=== PATIENT | female | born 1980 | race Caucasian/White ===

== ENCOUNTER → 2018-05-16 09:54 | Outpatient (CLI) | payer OTHER, SELFPAY ==
--- NOTE | 2018-05-16 | DI.RAD.S_ITS ---
PROCEDURE: XR THORACIC SPINE 2V INDICATIONS: LUMBAR AND THORACIC BACK PAIN TECHNIQUE: 2 views of the thoracic spine were acquired. COMPARISON: None. FINDINGS: Bones: No fractures or dislocations. No suspicious bony lesions. 12 pairs of ribs are noted, and appear intact where visualized. Mild multilevel degenerative changes are noted. Soft tissues: No paravertebral stripe thickening. IMPRESSION: No fracture. No acute osseous lesion. If symptoms and/or clinical suspicion for pathology persists, evaluation with MRI may be helpful for further assessment. Dictated by: Jessica Carson MD, PhD on 05/16/2018 at 10:46 Approved by: Jessica Carson MD, PhD on 05/16/2018 at 10:47
--- NOTE | 2018-05-16 | DI.RAD.S_ITS ---
PROCEDURE: XR LUMBAR SPINE 2-3V INDICATIONS: LUMBAR AND THORACIC BACK PAIN TECHNIQUE: 3 views of the lumbar spine were acquired. COMPARISON: None. FINDINGS: Bones: 5 [id number] vertebrae are present. There is trace L1-L2, L2-L3 and L3-L4 retrolisthesis.. No vertebral body compression fractures. No suspicious bony lesions. Soft tissues: Overlying bowel gas pattern is normal. No suspicious soft tissue calcifications. Cholecystectomy clips. Intrauterine device. IMPRESSION: No fracture. No acute osseous lesion. If symptoms and/or clinical suspicion for pathology persists, evaluation with MRI may be helpful for further assessment. Dictated by: Jessica Carson MD, PhD on 05/16/2018 at 10:45 Approved by: Jessica Carson MD, PhD on 05/16/2018 at 10:46
== END ==
PROVIDERS: PCP Nurse Practitioner Family; Visit Provider Nurse Practitioner Family
DX: M54.5 Low back pain (principal); M54.6 Pain in thoracic spine
CPT/HCPCS: 72070; 72100

== ENCOUNTER → 2018-05-31 15:41 | Outpatient (CLI) | payer OTHER, SELFPAY ==
--- NOTE | 2018-05-31 15:43 | DI.US.S_ITS ---
PROCEDURE: US ABDOMEN COMPLETE INDICATIONS: ABDOMINAL TENDERNESS TECHNIQUE: Real-time scanning was performed of the abdominal and retroperitoneal organs, with image documentation. COMPARISON: None. FINDINGS: Liver: Liver is normal in size and homogeneous in echotexture. Gallbladder: Gallbladder surgically absent Biliary ducts: Intrahepatic bile ducts are non-dilated. Extrahepatic bile duct caliber measures 5 mm. Normal is 6-7 mm or less in diameter, or 10 mm or less post-cholecystectomy. Pancreas: Visualized portions of the pancreas are sonographically normal. Spleen: Spleen is normal in size and homogeneous in echotexture. Kidneys: Kidneys are normal in size and echotexture. Right kidney measures 12.5 cm long; left kidney measures 12.4 cm long. No hydronephrosis or nephrolithiasis. No solid masses. Aorta: Visualized aorta is normal in caliber at less than 3 cm. Iliacs: Proximal common iliac arteries are normal in caliber at less than 2.5 cm. IVC: Intrahepatic inferior vena cava is patent. Miscellaneous: No free abdominal fluid. IMPRESSION: Normal abdomen ultrasound post cholecystectomy Dictated by: Cecilio Velazquez M.D. on 05/31/2018 at 17:06 Approved by: Cecilio Velazquez M.D. on 05/31/2018 at 17:07
== END ==
PROVIDERS: PCP Nurse Practitioner Family; Visit Provider Nurse Practitioner Family
DX: R10.819 Abdominal tenderness, unspecified site (principal); Z90.49 Acquired absence of other specified parts of digestive tract
CPT/HCPCS: 76700

== ENCOUNTER 2019-01-22 10:03 | Emergency (ER) | payer OTHER, SELFPAY ==
[2019-01-22 10:20] VITALS: BP 138/96; PULSE 78; RESP 15; TEMP 36.2; O2SAT 99; BMI 30.6
[2019-01-22 11:09] LABS: Alanine Aminotransferase 27 IU/L (9-52); Albumin 4.8 g/dL (3.5-5.0); Albumin Globulin Ratio 1.4 (1.0-2.8); Alkaline Phosphatase 75 U/L (38-126); Aspartate Aminotransferase 25 IU/L (14-36); Bilirubin Total 0.4 mg/dL (0.2-1.3); Blood Urea Nitrogen 12 mg/dL (7-17); Calcium 9.5 mg/dL (8.4-10.2); Carbon Dioxide 26 mmol/L (22-32); Chloride 101 mmol/L (98-107); Estimated Glomerular Filt Rate > 60.0 mL/min (>60); Globulin 3.5 g/dL (1.7-4.1); Glucose 82 mg/dL (70-100); HEMOLYSIS < 15 (0-50); Lipase 152 U/L (23-300); Potassium 3.7 mmol/L (3.4-5.1); Sodium 139 mmol/L (137-145); Total Protein 8.3 g/dL (6.3-8.2)
[2019-01-22 11:10] LABS: Add Manual Diff / Slide Review NO; Basophils Absolute Auto 100 /uL (0-100); Eosinophils Absolute Auto 300 /uL (0-450); Eosinophils Percent Auto 2.7 % (2-4); Hematocrit 39.8 % (36-46); Hemoglobin 13.3 g/dL (12.0-16.0); Lymphocytes Absolute Auto 2000 /uL (1100-4500); Lymphocytes Percent Auto 16.5 % (25-40); Mean Corpuscular HGB Conc 33.4 % (30-36); Mean Corpuscular Hemoglobin 29.7 PG (26-34); Mean Corpuscular Volume 88.8 fL (80-100); Monocytes Absolute Auto 1100 /uL (0-900); Monocytes Percent Auto 8.6 % (3-14); Neutrophils Absolute Auto 8700 /uL (1500-7000); Neutrophils Percent Auto 71.2 % (50-75); Platelet Count 387 X10^3/uL (150-400); Red Blood Cell Count 4.48 X10^6/uL (4.0-5.2); Red Cell Distribution Width 13.9 % (11.6-14.8); White Blood Cell Count 12.3 X10^3/uL (4.5-11.0)
[2019-01-22] MEDS: SODIUM CHLORIDE 0.9% 1,000 ML 1000 ML IV (11:19)
--- NOTE | 2019-01-22 11:33 | ED.ABDPAIN ---
HPI - Abdominal Pain General Chief Complaint: Abdominal Pain Stated Complaint: abdominal issues Time Seen by Provider: 01/22/19 11:25 Source: patient Mode of arrival: ambulatory Limitations: no limitations History of Present Illness HPI narrative: This is a 38-year-old female comes to the emergency department with complaint of ordaz stools. Patient states that she has had abdominal discomfort for the past eight days. It is mostly suprapubically but also a little bit epigastric. Patient has not had fevers. She has had some nausea but no vomiting. She has not really had diarrhea but states her stools have been ordaz in coloration. Patient states that she has had no issues with urination, no frequency urgency or dysuria. No vaginal discharge, she does have an IUD in place states she does get normal. Then will have some spotting a couple days afterwards but this is been regular. She was seen by [facility] Car[facility] today. They did a point of care urine which was negative as well as a pelvic exam. Patient was mildly tender suprapubically but otherwise with no cervical motion tenderness, no discharge or other changes. Patient has a history significant for asthma as well as had parasites after living in [facility]. She states she was treated for these as long with her whole family. She has had 1 episode similar to this that last about a week about 6 months ago and then resolved. She has felt a little bit more short of breath recently. She states that her asthma was intermittently very problematic [place] but after working with her ENT and physician she has got back to a fairly normal level. She states that she felt a little short of breath today. She albuterol. Related Data Home Medications Medication Instructions Recorded Confirmed Dulera 1 puff INH BID #0 04/08/17 01/22/19 Dymista 1 spr INTRANASAL BID #0 04/08/17 01/22/19 montelukast 10 mg PO DAILY PRN #0 04/08/17 01/22/19 albuterol sulfate [ProAir 1 puff INHALATION PRN PRN 01/22/19 01/22/19 RespiClick] beclomethasone diprop (AQ) 1 spray INTRANASAL BID 01/22/19 01/22/19 celecoxib 200 mg PO DAILY PRN 01/22/19 01/22/19 copper [ParaGard T 380A] 1 ea INTRAUTERINE .ONCE 01/22/19 01/22/19 Allergies Allergy/AdvReac Type Severity Reaction Status Date / Time acetaminophen [From TYLENOL] Allergy Unknown Verified 01/22/19 10:58 aspirin [ASPIRIN] Allergy Unknown Verified 01/22/19 10:58 ibuprofen [From Advil] Allergy Unknown Verified 01/22/19 10:58 NSAIDS (Non-Steroidal Allergy Unknown Verified 01/22/19 10:58 Anti-Inflamma Review of Systems Review of Systems ROS Unobtainable: All systems reviewed & are unremarkable except as noted in HPI and below Constitutional Denies body ache(s), Denies chills, Denies fever(s), Denies lethargy and Denies weakness ENT Ears, Nose, Mouth, and Throat: Denies nasal congestion Cardiovascular Denies chest pain, Denies chest pain at rest, Denies diaphoresis, Denies syncope, Denies pedal edema, Denies edema, Denies leg edema, Denies lightheadedness, Reports dyspnea, Denies dyspnea on exertion and Denies orthopnea Respiratory Denies chest congestion, Denies excessive phlegm production, Denies pain on inspiration, Reports dyspnea, Denies dyspnea on exertion and Denies wheezing Gastrointestinal Gastrointestinal: Reports abdominal pain (Epigastric, suprapubic), Denies melena, Reports bloating, Denies hematochezia, Denies change in bowel habits, Reports change in stool character (Ordaz in coloration), Denies constipation, Denies early satiety, Denies diarrhea, Denies nausea and Denies vomiting Genitourinary Reports abnormal vaginal bleeding, Denies hematuria, Denies urinary frequency, Denies dysuria, Denies flank pain, Denies urinary incontinence, Denies urinary urgency and Denies vaginal discharge Musculoskeletal Denies back pain and Denies muscle weakness Integumentary/Breasts Denies rash Neurologic Denies syncope and Denies weakness Allergic/Immunologic Denies wheezing PFSH Medical History Asthma (Chronic) Parasites in stool (Resolved) Social History Smoking Status: Never smoker substance use type: does not use during the past year weight has: increased > 10 lbs Exam Initial Vital Signs Initial Vital Signs: Vital Signs Temperature 97.1 F L 01/22/19 10:20 Pulse Rate 78 01/22/19 10:20 Respiratory Rate 15 01/22/19 10:20 Blood Pressure 138/96 H 01/22/19 10:20 Pulse Oximetry 99 01/22/19 10:20 GENERAL: Alert and oriented x three, Obese, well-appearing female in mild distress. HEENT: Head normocephalic, atraumatic, EOMI, pupils reactive, face symmetric, moist mucous membranes NECK: Supple, full range of motion CARDIOVASCULAR: Regular rate and rhythm without murmurs, rubs or gallops. RESPIRATORY: Breath sounds equal bilaterally, no wheezes rales or rhonchi. no tachypnea, no accessory muscle use. ABDOMEN: Soft, very mild epigastric and suprapubic tenderness. Normoactive bowel sounds all 4 quadrants. No guarding or rebound, rigidity, no mass : No CVA tenderness EXTREMITIES: Normal range of motion, no clubbing or edema. Neurovascularly intact NEUROLOGICAL: Cranial nerves II through XII grossly intact. Moving all extremities SKIN: Warm, dry, no petechiae, no rashes or lesions. Course Orders Ordered: ED Orders 01/22/19 10:45 Complete Blood Count AUTO DIFF Stat Comprehensive Metabolic Panel Stat Lipase Stat 01/22/19 12:41 CT abdomen pelvis w con Stat Discontinued Medications Albuterol/Ipratropium (Duoneb) 3 ml INH NOW ONE Stop: 01/22/19 11:50 Last Admin: 01/22/19 11:58 Dose: 3 ml Sodium Chloride (Normal Saline 0.9%) 1,000 mls @ 1,000 mls/hr IV BOLUS ONE Stop: 01/22/19 11:36 Last Infusion: 01/22/19 13:37 Dose: 0 mls/hr Admin: 01/22/19 11:19 Dose: 1,000 mls/hr Vital Signs - 8 hr 01/22/19 12:01 01/22/19 13:55 Pulse Rate 79 90 Respiratory Rate 20 18 Blood Pressure [Right Arm] 120/89 Pulse Oximetry 100 99 MDM - Abdominal Pain Lab Data Attestation: I reviewed the patient's lab results. Result diagrams: 01/22/19 10:45 01/22/19 10:45 Lab Results 01/22/19 01/22/19 Range/Units 10:45 10:45 WBC 12.3 H (4.5-11.0) X10^3/uL RBC 4.48 (4.0-5.2) X10^6/uL Hgb 13.3 (12.0-16.0) g/dL Hct 39.8 (36-46) % MCV 88.8 (80-100) fL MCH 29.7 (26-34) PG MCHC 33.4 (30-36) % RDW 13.9 (11.6-14.8) % Plt Count 387 (150-400) X10^3/uL Neut % (Auto) 71.2 (50-75) % Lymph % (Auto) 16.5 L (25-40) % [place] % (Auto) 8.6 (3-14) % Eos % (Auto) 2.7 (2-4) % Baso % (Auto) 1.0 (0-2) % Neut # (Auto) 8700 H (5617-6283) /uL Lymph # (Auto) 2000 (5729-8959) /uL [place] # (Auto) 1100 H (0-900) /uL Eos # (Auto) 300 (0-450) /uL Baso # (Auto) 100 (0-100) /uL Sodium 139 (137-145) mmol/L Potassium 3.7 (3.4-5.1) mmol/L Chloride 101 (98-107) mmol/L Carbon Dioxide 26 (22-32) mmol/L BUN 12 (7-17) mg/dL Creatinine 0.60 (0.52-1.04) mg/dL Estimated GFR > 60.0 (>60) mL/min BUN/Creatinine Ratio 20.0 (6-22) Glucose 82 (70-100) mg/dL Calcium 9.5 (8.4-10.2) mg/dL Total Bilirubin 0.4 (0.2-1.3) mg/dL AST 25 (14-36) IU/L ALT 27 (9-52) IU/L Alkaline Phosphatase 75 (38-126) U/L Total Protein 8.3 H (6.3-8.2) g/dL Albumin 4.8 (3.5-5.0) g/dL Globulin 3.5 (1.7-4.1) g/dL Albumin/Globulin Ratio 1.4 (1.0-2.8) Lipase 152 (23-300) U/L Point of care testing: Point of Care Testing Test Results Negative Imaging Data CT scan - abdomen: Radiologist's impression: 35 Berenice Miller, DO Find Patient Imaging Varsha,Divina V 38 F 1980 ACTIVITY DATE EXAM STATUS AUTHOR 01/22/19 12:[address] [address] [address] Scan Report Signed Patient: Divina Maddox VMR#: [id number] : 1980Acct:[id number] Age/Sex: 38 / FDate of Service: 01/22/19 Loc: ED Accession Number: [id number] Procedure: CT abdomen pelvis w con Ordering Provider: Berenice Miller D.O. PROCEDURE: CT ABDOMEN PELVIS W CON INDICATIONS: epigastric and suprapubic pain, hx parasites, ordaz stool TECHNIQUE: After the administration of intravenous contrast, 5 mm thick sections acquired from the diaphragm to the symphysis. 5 mm coronal and sagittal reformats were acquired. For radiation dose reduction, the following was used: automated exposure control, adjustment of mA and/or kV according to patient size. COMPARISON: [facility], , US ABDOMEN COMPLETE, 05/31/2018, 16:14. FINDINGS: Image quality: Excellent. ABDOMEN: Lung bases: Scarring/atelectasis in posterior and lateral aspect of bilateral lung bases are seen. Heart size is normal. Solid organs: Liver is normal in size and enhancement. Gallbladder is surgically absent. Biliary system is non dilated. Pancreas enhances normally. Spleen is normal in size and enhancement. No adrenal nodules. Kidneys demonstrate normal size and enhancement, without hydronephrosis. Peritoneum and bowel: There is no evidence of bowel structure. Small amount of free fluid in lower pelvis is seen. A few mild fluid distended small bowel loops are noted in lower abdomen and pelvis with mild small bowel wall thickening. No free air is seen. No other area of abnormal bowel thickening.. Bowel loops demonstrate normal wall thickness and caliber. No free fluid or air. Nodes and vessels: No retroperitoneal or mesenteric adenopathy by size criteria. Aorta and inferior vena cava are normal in size. Miscellaneous: No ventral hernias. PELVIS: Genitourinary: Mild diffuse bladder wall thickening is seen. Intrauterine device is noted in its central endometrial location. Bulky appearing uterus is noted with suggestion of multiple uterine fibroids. Cystic structures are noted in bilateral adnexa, measures up to 2.3 x 2.1 cm in size in left adnexa and a 2.5 x 1.7 cm in right adnexa. Miscellaneous: No inguinal hernias or adenopathy. Bones: No suspicious bony lesions. No vertebral body compression fractures. IMPRESSION: 1. Bulky appearing uterus. Cystic structures in bilateral adnexa which may represent ovarian cysts. Small amount of free fluid in lower pelvis. No gross free air. Intrauterine device in situ. 2. Mild small bowel wall thickening in lower abdomen/pelvis adjacent to the uterus, which may represent reactive inflammatory changes. Low-grade enteritis cannot be excluded. 3. Mild bladder wall thickening, suggestive of mild cystitis. No renal stone hydronephrosis. Dictated by: Yan Mcgregor M.D. on 01/22/2019 at 12:58 Approved by: Yan Mcgregor M.D. on 01/22/2019 at 13:05 [facility] Narrative Medical decision making narrative: Patient's lab work shows an elevated white count, in the 12 range.CMP shows a slightly elevated total protein. Imaging showes patient has a bulky appearing uterus with cystic structures bilaterally adnexa which could be ovarian cyst. There is some small amount of free fluid in the lower pelvis and intrauterine device in situ. There is a little bit of thickening of the bowel wall which could represent inflammatory changes although a low-grade enteritis could not be excluded. There is also some thickening of the bladder wall suggestive of mild cystitis. Patient has a point of care urine was negative. was negative. Discussed with patient that possibly her uterine change and could be the cause of her discomfort and I would recommend a dedicated pelvic ultrasound for further evaluation for likely uterine fibroids and ovarian cysts although discussed remote risk of other causes and cancer when patient asked directly. We also discussed that there is not a clear sign of enteritis but some inflammation of adjacent bowel and with rodaz stools but no frequent diarrhea would not start her antibiotics at this time. We did discuss doing a stool culture and ova and parasites and was given a specimen cup as well as outpatient lab script. Patient did respond to some albuterol and her peak flow improved afterwards. Patient does have this at home plan to continue. Discharge Plan Departure Patient Disposition: Home Clinical Impression: Abdominal pain, Ovarian cyst Discharge Date/Time: 01/22/19 14:16 Interventions: ED Discharge Assessment Last Done: 01/22/19 13:55 Instructions: DI for Abdominal Pain-Adult Activity Restrictions/Additional Instructions: Follow-up with her primary care physician in the next week for re-evaluation. I would recommend discussing with them a pelvic ultrasound regarding the changes to uterus including the c bilateral adnexa (ovarian) cystic structures and possibility of uterine fibroids. There is a little thickening of the bladder but urine is negative for infection. You may continue ibuprofen and/or Tylenol as needed for pain. I would recommend sending a stool sample for evaluation for ova and parasites as well. Return to the emergency department for fevers greater than 100.4, worsening pain, black or bloody stools, new or persistent vomiting, new vaginal bleeding or discharge or other new or concerning symptoms. Prescriptions: No Action Dulera 200 MCG/5 MCG HFA aerosol inhaler 1 puff INH BID Qty: 0 RF: 0 Dymista 23 GM spray,non-aerosol 1 spr Intranasal BID Qty: 0 RF: 0 montelukast 10 MG tablet 10 mg PO DAILY PRN (Reason: asthma or allergies) Qty: 0 RF: 0 celecoxib 200 mg capsule 200 mg PO DAILY PRN (Reason: joint pain) RF: 0 beclomethasone diprop (AQ) 42 mcg (0.042 %) [place],Non-Aerosol 1 spray Intranasal BID RF: 0 ParaGard T 380A 380 square mm Intrauterine Device 1 ea Intrauterine .ONCE RF: 0 ProAir RespiClick 90 mcg/actuation Aerosol Powdr Breath Activated 1 puff Inhalation PRN PRN (Reason: Allergy Symptoms) RF: 0 Referrals: Tg Carreon ARNP [Primary Care Provider] -
[2019-01-22] MEDS: ALBUTEROL/IPRATROPIUM 3 ML AMPUL INH (11:58)
[2019-01-22 12:01] VITALS: PULSE 79; RESP 20; O2SAT 100
--- NOTE | 2019-01-22 12:41 | DI.CT.S_ITS ---
PROCEDURE: CT ABDOMEN PELVIS W CON INDICATIONS: epigastric and suprapubic pain, hx parasites, melendez stool TECHNIQUE: After the administration of intravenous contrast, 5 mm thick sections acquired from the diaphragm to the symphysis. 5 mm coronal and sagittal reformats were acquired. For radiation dose reduction, the following was used: automated exposure control, adjustment of mA and/or kV according to patient size. COMPARISON: [facility], US, US ABDOMEN COMPLETE, 05/31/2018, 16:14. FINDINGS: Image quality: Excellent. ABDOMEN: Lung bases: Scarring/atelectasis in posterior and lateral aspect of bilateral lung bases are seen. Heart size is normal. Solid organs: Liver is normal in size and enhancement. Gallbladder is surgically absent. Biliary system is non dilated. Pancreas enhances normally. Spleen is normal in size and enhancement. No adrenal nodules. Kidneys demonstrate normal size and enhancement, without hydronephrosis. Peritoneum and bowel: There is no evidence of bowel structure. Small amount of free fluid in lower pelvis is seen. A few mild fluid distended small bowel loops are noted in lower abdomen and pelvis with mild small bowel wall thickening. No free air is seen. No other area of abnormal bowel thickening.. Bowel loops demonstrate normal wall thickness and caliber. No free fluid or air. Nodes and vessels: No retroperitoneal or mesenteric adenopathy by size criteria. Aorta and inferior vena cava are normal in size. Miscellaneous: No ventral hernias. PELVIS: Genitourinary: Mild diffuse bladder wall thickening is seen. Intrauterine device is noted in its central endometrial location. Bulky appearing uterus is noted with suggestion of multiple uterine fibroids. Cystic structures are noted in bilateral adnexa, measures up to 2.3 x 2.1 cm in size in left adnexa and a 2.5 x 1.7 cm in right adnexa. Miscellaneous: No inguinal hernias or adenopathy. Bones: No suspicious bony lesions. No vertebral body compression fractures. IMPRESSION: 1. Bulky appearing uterus. Cystic structures in bilateral adnexa which may represent ovarian cysts. Small amount of free fluid in lower pelvis. No gross free air. Intrauterine device in situ. 2. Mild small bowel wall thickening in lower abdomen/pelvis adjacent to the uterus, which may represent reactive inflammatory changes. Low-grade enteritis cannot be excluded. 3. Mild bladder wall thickening, suggestive of mild cystitis. No renal stone hydronephrosis. Dictated by: Yan Mcgregor M.D. on 01/22/2019 at 12:58 Approved by: Yan Mcgregor M.D. on 01/22/2019 at 13:05
[2019-01-22 13:55] VITALS: BP 120/89; PULSE 90; RESP 18; O2SAT 99
== END 2019-01-22 14:16 | disposition home or self-care (01) ==
PROVIDERS: Emergency Provider Emergency Medicine; PCP Nurse Practitioner Family
DX: N83.209 Unspecified ovarian cyst, unspecified side (principal)
CPT/HCPCS: 36591; 74177; 80053; 81025; 83690; 85025; 94150; 94640; 96360; 96361; 99283; 99285; Q9967

== ENCOUNTER → 2019-01-23 08:49 | Outpatient (CLI) | payer OTHER, SELFPAY | PROVIDERS: PCP Nurse Practitioner Family; Visit Provider Emergency Medicine | DX: Z86.19 Personal history of other infectious and parasitic diseases (principal) | CPT/HCPCS: 87045; 87177; 87899 ==

== ENCOUNTER → 2019-02-07 07:55 | Outpatient (CLI) | payer OTHER, SELFPAY ==
--- NOTE | 2019-02-07 | DI.US.S_ITS ---
PROCEDURE: US PELVIC COMPLETE INDICATIONS: PELVIC PAIN TECHNIQUE: Real-time scanning was performed of the pelvic organs, with image documentation. Additional endovaginal scanning was necessary due to incomplete visualization of the adnexal and endometrial structures by transabdominal scanning. COMPARISON: None. FINDINGS: Transabdominal scanning: Limited scanning through the kidneys shows no hydronephrosis. No pathologic free abdominal or pelvic fluid. Endovaginal scanning: Uterus: Uterus is slightly enlarged in size at 10.8 x 5.8 x 7.1 cm. 2.2 x 1.4 x 1.6 cm intramural fibroid is seen in left anterior myometrium. The endometrium measures 6.2 mm in combined thickness. No endometrial mass or fluid is seen. Intrauterine device is noted in its normal central endometrial location. Ovaries: Right ovary measures 3.7 x 2.2 x 1.3 cm in size. Left ovary measures 4.4 x 1.7 x 1.4 cm in size. No gross abnormality is seen in bilateral ovaries or adnexa. IMPRESSION: Single intramural fibroid in left anterior myometrium as above. Otherwise unremarkable ultrasound examination of pelvis. Intrauterine device is in its normal central endometrial location. Dictated by: Yan Mcgregor M.D. on 02/07/2019 at 9:43 Approved by: aYn Mcgregor M.D. on 02/07/2019 at 9:45
== END ==
PROVIDERS: PCP Nurse Practitioner Family; Visit Provider Nurse Practitioner Family
DX: R10.2 Pelvic and perineal pain (principal); D25.1 Intramural leiomyoma of uterus; Z97.5 Presence of (intrauterine) contraceptive device
CPT/HCPCS: 76830; 76856

== ENCOUNTER 2021-09-30 23:53 | Emergency (ER) | payer OTHER, SELFPAY ==
[2021-10-01 00:17] VITALS: BP 160/92; PULSE 110; RESP 18; TEMP 36.7; O2SAT 100; BMI 30.2
[2021-10-01 01:08] LABS: Add Manual Diff / Slide Review NO; Basophils Absolute Auto 0 /uL (0-100); Basophils Percent Auto 0.2 % (0-2); Eosinophils Absolute Auto 500 /uL (0-450); Eosinophils Percent Auto 3.9 % (2-4); Hematocrit 24.2 % (36-46); Hemoglobin 7.9 g/dL (12.0-16.0); Lymphocytes Absolute Auto 1900 /uL (1100-4500); Mean Corpuscular HGB Conc 32.5 % (30-36); Mean Corpuscular Hemoglobin 29.5 PG (26-34); Mean Corpuscular Volume 90.8 fL (80-100); Monocytes Absolute Auto 1100 /uL (0-900); Neutrophils Absolute Auto 10000 /uL (1500-7000); Neutrophils Percent Auto 73.9 % (50-75); Platelet Count 396 X10^3/uL (150-400); Red Blood Cell Count 2.67 X10^6/uL (4.0-5.2); Red Cell Distribution Width 13.4 % (11.6-14.8); White Blood Cell Count 13.5 X10^3/uL (4.5-11.0)
[2021-10-01 01:10] LABS: BUN Creatinine Ratio 24.1 (6-22); Blood Urea Nitrogen 14 mg/dL (7-17); Calcium 8.5 mg/dL (8.4-10.2); Carbon Dioxide 24 mmol/L (22-32); Chloride 104 mmol/L (98-107); Estimated Glomerular Filt Rate > 60.0 mL/min (>60); Glucose 129 mg/dL (70-100); HEMOLYSIS < 15 (0-50); Potassium 3.2 mmol/L (3.4-5.1); Sodium 136 mmol/L (137-145)
--- NOTE | 2021-10-01 01:22 | PC.NURSE ---
Patient very dizzy with ambulation to restroom, became diaphoretic i felt like i was going to pass out Nauseated. Patient transferred to a bed in hallway.
--- NOTE | 2021-10-01 01:31 | DI.US.S_ITS ---
PROCEDURE: US PELVIC COMPLETE INDICATIONS: HEAVY BLEEDING TECHNIQUE: Real-time scanning was performed of the pelvic organs, with image documentation. Additional endovaginal scanning was necessary due to incomplete visualization of the adnexal and endometrial structures by transabdominal scanning. COMPARISON: [facility], CT, CT ABDOMEN PELVIS W CON, 01/22/2019, 12:37. [facility], US, US PELVIC COMPLETE, 02/07/2019, 8:17. FINDINGS: Uterus: Uterus is anteverted and mildly enlarged in size at 12.4 x 6.5 x 8.4 cm. The myometrium is heterogeneous, with a 2.3 cm fibroid again seen anteriorly, which is similar to the prior examination. The endometrium measures 6 mm combined thickness. An IUD is not seen. There is a solid nonvascular heterogeneous focus seen within the endometrial stripe that measures 2.4 x 1.4 x 3.1 cm. Ovaries: The right ovary measures 4.7 x 2.4 x 4.3 cm, and demonstrates a simple cyst that measures up to 4.3 cm. The left ovary measures 6.5 x 2.7 x 4.3 cm and demonstrates a simple cyst that measures up to 3.1 cm. The ovaries have a normal sonographic appearance. No adnexal masses are seen. Other: No pathologic free abdominal or pelvic fluid. IMPRESSION: An IUD is not seen. If the IUD has not been removed, please consider follow-up imaging, such as pelvic x-ray or pelvic CT. There is a nonvascular heterogeneous focus along the endometrial stripe that measures up to 2.4 cm. Given the history, this may be related to a hematoma, although differential diagnosis includes a polyp. Please consider short-term follow-up. Bilateral simple appearing ovarian cysts are seen, which are likely benign in a patient of this age. Uterine fibroid again seen. Mildly enlarged uterine size. Note: No significant discrepancy from the preliminary report. We strive to produce accurate, complete, and clear reports of imaging services. To assist us in improving patient care, this report was composed using standard report templates and voice recognition software. Therefore, it may contain abnormal punctuation, insertions and/or omissions. Occasional wrong-word or sound-alike substitutions may occur. Though we review the report and make efforts to correct it, we do recommend that the report be read carefully in proper context to recognize any text inaccuracies. Dictated by: Luis Brasher M.D. on 10/01/2021 at 7:38 Approved by: Luis Brasher M.D. on 10/01/2021 at 7:43
[2021-10-01] MEDS: SODIUM CHLORIDE 0.9% 1,000 ML 1000 ML IV (01:41)
[2021-10-01] MEDS: MEDROXYPROGESTERONE ACETATE 10 MG TABLET 20 MG PO (03:08)
--- NOTE | 2021-10-01 03:39 | ED_ITS ---
HPI - General Adult General Chief complaint: Vaginal Bleeding Stated complaint: severe bleeding from vaginal area, large clots Time Seen by Provider: 10/01/21 01:30 Mode of arrival: Ambulatory History of Present Illness HPI narrative: 41-year-old woman with a history of asthma presents with heavy vaginal bleeding. She notes that she typically has fairly heavy menstrual cycles she had a normal cycle at the beginning of this month that last about a week followed by about a week of spotting and then today she had dramatically increased bleeding with clots the size of small zander multiple gushes of fluid multiple tampon changes per night last night and today as she was getting ready for bed noted that she was needing to change a pad almost every hour and had a near syncopal episode in the bathroom which prompted her emergency visit today. She believes she has a copper ParaGard IUD in place. She notes that she is dizzy when she stands up she is not complaining of chest pain, palpitations, exertional dyspnea or orthopnea. No lower extremity edema. No nausea vomiting or diarrhea no fever coughs or chills. Related Data Home Medications Medication Instructions Recorded Confirmed azelastine-fluticasone 137 mcg-50 1 spr INTRANASAL BID #0 04/08/17 07/30/21 mcg/spray nasal spray (Dymista) mometasone-formoterol HFA 200 1 puff INH BID #0 04/08/17 07/30/21 mcg-5 mcg/actuation aerosol inhaler (Dulera) montelukast 10 mg tablet 10 mg PO DAILY PRN #0 04/08/17 07/30/21 albuterol sulfate 90 mcg/actuation 1 puff INHALATION PRN PRN 01/22/19 07/30/21 breath activated powder inhaler (ProAir RespiClick) celecoxib 200 mg capsule 200 mg PO DAILY PRN 01/22/19 07/30/21 copper 380 square mm intrauterine 1 ea INTRAUTERINE .ONCE 01/22/19 07/30/21 device (ParaGard T 380A) Previous Rx's Medication Instructions Recorded tranexamic acid 650 mg tablet 1,300 mg PO TID #60 tab 10/01/21 Allergies Allergy/AdvReac Type Severity Reaction Status Date / Time acetaminophen [From TYLENOL] Allergy Unknown Verified 07/30/21 07:38 aspirin [ASPIRIN] Allergy Unknown Verified 07/30/21 07:38 ibuprofen [From Advil] Allergy Unknown Verified 07/30/21 07:38 NSAIDS (Non-Steroidal Allergy Unknown Difficulty Verified 10/01/21 00:29 Anti-Inflamma Breathing Review of Systems Review of Systems Narrative: Remainder of complete review of systems is otherwise unremarkable except for that included in the HPI. Patient History Medical History Asthma Parasites in stool Social History Smoking Status: Never smoker substance use type: does not use during the past year weight has: increased > 10 lbs Smoking Status: Never smoker alcohol intake frequency: a few times a month Substance Use Type: does not use Exam Narrative Exam Narrative: General: Pale but in no acute distress. Able to give a complete and coherent history. Well-nourished well-developed HEENT: Moist mucous membranes, normal sclera with reactive pupils, Respiratory: Lungs are clear to auscultation, no wheezing no rales no rhonchi. Full and symmetrical air movement Cardiac: Regular rate and rhythm no murmurs no bruits Abdomen: Soft, nontender upper abdomen but mild tenderness suprapubic area without rebound or guarding, good bowel tones, no flank pain Skin: Warm and dry, no rashes Neurologic: Grossly neurologically intact with no obvious asymmetries or abnormalities Extremities: No trauma, well perfused Psych: Cooperative, appropriate insight and affect Initial Vital Signs Initial Vital Signs: Vital Signs Temperature 98.1 F 10/01/21 00:17 Pulse Rate 110 H 10/01/21 00:17 Respiratory Rate 18 10/01/21 00:17 Blood Pressure 160/92 H 10/01/21 00:17 Pulse Oximetry 100 10/01/21 00:17 Course Orders Ordered: ED Orders 10/01/21 00:39 Basic Metabolic Panel Stat Complete Blood Count AUTO DIFF Stat Type and Screen Stat 10/01/21 01:31 US pelvic complete Stat Tranexamic Acid 1,000 mg/ (Sodium Chloride) 100 mls @ 200 mls/hr IV NOW ONE Stop: 10/01/21 04:54 Discontinued Medications Sodium Chloride (Normal Saline 0.9%) 1,000 mls @ 1,000 mls/hr IV BOLUS ONE Stop: 10/01/21 02:29 Last Infusion: 10/01/21 03:07 Dose: 0 mls/hr Documented by: JOSE MANUEL Admin: 10/01/21 01:41 Dose: 1,000 mls/hr Documented by: JOSE MANUEL Medroxyprogesterone Acetate (Medroxyprogesterone Acetate 10 Mg Tablet) 20 mg PO NOW ONE Stop: 10/01/21 01:32 Last Admin: 10/01/21 03:08 Dose: 20 mg Documented by: JOSE MANUEL Oxycodone/Acetaminophen (Oxycodone/Acetaminophen 5/325 Tablet) 1 tab PO NOW ONE Stop: 10/01/21 04:33 Oxycodone/Acetaminophen (Oxycodone/Apap 5/325 Prepack) 1 bottle MISC SEEINSTR ONE Stop: 10/01/21 04:33 Vital Signs Vital signs: Vital Signs - 8 hr 10/01/21 00:17 Temperature 98.1 F Pulse Rate 110 H Respiratory Rate 18 Blood Pressure 160/92 H Pulse Oximetry 100 Medical Decision Making Lab Data Result diagrams: 10/01/21 00:39 10/01/21 00:39 Labs: Lab Results 10/01/21 10/01/21 10/01/21 Range/Units 00:39 00:39 00:39 WBC 13.5 H (4.5-11.0) X10^3/uL RBC 2.67 L (4.0-5.2) X10^6/uL Hgb 7.9 L (12.0-16.0) g/dL Hct 24.2 L (36-46) % MCV 90.8 (80-100) fL MCH 29.5 (26-34) PG MCHC 32.5 (30-36) % RDW 13.4 (11.6-14.8) % Plt Count 396 (150-400) X10^3/uL Neut % (Auto) 73.9 (50-75) % Lymph % (Auto) 14.0 L (25-40) % [place] % (Auto) 8.0 (3-14) % Eos % (Auto) 3.9 (2-4) % Baso % (Auto) 0.2 (0-2) % Neut # (Auto) 31945 H (0289-1355) /uL Lymph # (Auto) 1900 (3797-3882) /uL [place] # (Auto) 1100 H (0-900) /uL Eos # (Auto) 500 H (0-450) /uL Baso # (Auto) 0 (0-100) /uL Sodium 136 L (137-145) mmol/L Potassium 3.2 L (3.4-5.1) mmol/L Chloride 104 (98-107) mmol/L Carbon Dioxide 24 (22-32) mmol/L BUN 14 (7-17) mg/dL Creatinine 0.58 (0.52-1.04) mg/dL Estimated GFR > 60.0 (>60) mL/min BUN/Creatinine Ratio 24.1 H (6-22) Glucose 129 H (70-100) mg/dL Calcium 8.5 (8.4-10.2) mg/dL Blood Type B Positive Antibody Screen Negative Point of Care Testing Test Results Negative Point of care testing: Point of Care Testing Test Results Negative Imaging Data Ultrasound pelvis: Radiologist's Impression: Suspected endometrial region mass without definite internal blood flow. This is nonspecific but could reflect a polyp. Bilateral ovarian cysts. MDM Narrative Medical decision making narrative: 41-year-old woman with complaints of heavy vaginal bleeding that has been worse in the past 36 hours with increasingly large clots, tachycardia, near-syncope and at this point is going through large temp on almost every hour. Her H&H has dropped significantly compared to January of 2019. 2019 H&H was 13.3 and 39.8 and today is 7.9 and 24.2. Pelvic ultrasound shows endometrial region mass that is nonspecific but could reflect a polyp that may explain the severity bleeding. No IUD was noted on the ultrasound. Care is reviewed with SHERI Rodríguez on-call this weekend. She agreed that medical management and outpatient follow-up to be scheduled on Sunday would be appropriate. We discussed both progesterone verses TXA treatment. As her issue seems to be mechanical secondary to the polyp mass in her endometrium rather than thickened endometrial lining I am going to opt to treat her with TXA. She is given 1000 mg IV in the emergency department and instructions to take 650 mg, 2 tabs 3 times a day while she continues to bleed heavily. We briefly discussed addition of iron supplementation in the setting of vitamin- C to help with absorption to replace iron levels. I suspect with her MCV being so high that this is much more acute blood loss rather than long-term chronic bleeding consequences. She will follow-up with that [facility] on Sunday morning she is informed that her IUD has been dislodged. Discharge Plan Departure Patient Disposition: Home Clinical Impression: Vaginal bleeding, Endometrial polyp, Anemia Instructions: DI for Vaginal Bleeding Activity Restrictions/Additional Instructions: Thank you for coming in today You clearly have lost quite a bit of blood in comparison to blood work from 2019. I do not know if all of this has worsened with your overall heavy vaginal bleeding or if more of it can be attributed to the heavy bleeding in the last 48 hours. You definitely are anemic with hematocrit level currently at 24.2 (it was normal at 39.8 in January of 2019). Slowing the bleeding down will help your body reversed that anemia. Adding iron to your usual regimen (an fxzw-fmc-jyht ter iron supplement taken with vitamin-C daily) can help even faster For the bleeding itself you were given tranexamic acid IV in the emergency department and a prescription for , to 650 mg tablets, 3 times a day why you are having heavy bleeding. [facility] in [place] for you today. Please be aware that it looks like you have dislodged your Mirena IUD with all of this heavy bleeding You will need to see a disulfurizer tender, please contact [facility] at [phone], Dr. Houston is on-call on Sunday. Their office will be expecting your call. If you have worsening bleeding, more episodes of almost passing out or other issues, please feel free to return to the emergency department. Prescriptions: New tranexamic acid 650 mg tablet 1,300 mg PO TID Qty: 60 0RF No Action Dulera 200 MCG/5 MCG HFA aerosol inhaler 1 puff INH BID Qty: 0 0RF Dymista 23 GM spray,non-aerosol 1 spr Intranasal BID Qty: 0 0RF montelukast 10 MG tablet 10 mg PO DAILY PRN (Reason: asthma or allergies) Qty: 0 0RF celecoxib 200 mg capsule 200 mg PO DAILY PRN (Reason: joint pain) 0RF Label Comments: TK 1 C PO QD NEEDED FOR JOINT PAIN ParaGard T 380A 380 square mm Intrauterine Device 1 ea Intrauterine .ONCE 0RF Label Comments: inserted 2011 ProAir RespiClick 90 mcg/actuation Aerosol Powdr Breath Activated 1 puff Inhalation PRN PRN (Reason: Allergy Symptoms) 0RF Referrals: Tg Carreon ARNP [Primary Care Provider] -
[2021-10-01] MEDS: TRANEXAMIC ACID 1,000 MG in SODIUM CHLORIDE 0.9% 100 ML 200 ML IV (04:34)
[2021-10-01] MEDS: OXYCODONE/APAP 5/325 PREPACK 1 BOTTLE MISC (04:39)
[2021-10-01] MEDS: OXYCODONE/ACETAMINOPHEN 5/325 TABLET 1 TAB PO (04:39)
[2021-10-01] MEDS: ONDANSETRON 4 MG/2 ML INJ IV (04:52)
[2021-10-01 05:09] VITALS: BP 111/62; PULSE 85; RESP 16; O2SAT 99
== END 2021-10-01 05:33 | disposition home or self-care (01) ==
PROVIDERS: Emergency Provider Emergency Medicine; PCP Nurse Practitioner Family
DX: N93.9 Abnormal uterine and vaginal bleeding, unspecified (principal); N84.0 Polyp of corpus uteri; D64.9 Anemia, unspecified
CPT/HCPCS: 36415; 76830; 76856; 80048; 81025; 85025; 86850; 86900; 86901; 96361; 96365; 96375; 99284; J2405

== ENCOUNTER → 2021-10-04 09:58 | Outpatient (CLI) | payer OTHER, SELFPAY ==
--- NOTE | 2021-10-04 10:00 | DI.RAD.S_ITS ---
PROCEDURE: XR ABDOMEN 1V INDICATIONS: Lost IUD TECHNIQUE: One view of the abdomen acquired. COMPARISON: [facility], CT, CT ABDOMEN PELVIS W CON, 01/22/2019, 12:37. [facility], US, US PELVIC COMPLETE, 10/01/2021, 2:04. FINDINGS: Surgical changes and devices: Cholecystectomy clips are present. No radiopaque intrauterine device is seen in the pelvis. Bowel: Bowel gas pattern is normal. Soft tissues: No suspicious abdominal calcifications. Visualized solid organ contours appear normal in size. Bones: No suspicious bony lesions. IMPRESSION: No intrauterine device is identified in the abdomen or pelvis. Dictated by: Tao Mehta M.D. on 10/04/2021 at 10:38 Approved by: Tao Mehta M.D. on 10/04/2021 at 10:40
== END ==
PROVIDERS: PCP Internal Medicine; Referring Provider Specialist; Visit Provider Specialist
DX: T83.32XA Displacement of intrauterine contraceptive device, initial encounter (principal)
CPT/HCPCS: 74018

== ENCOUNTER → 2021-10-27 09:22 | Outpatient (CLI) | payer OTHER, SELFPAY ==
[2021-10-27 09:53] LABS: COVID19 -Nasal RAPID Negative (Negative)
== END ==
PROVIDERS: PCP Internal Medicine; Visit Provider Specialist
DX: Z01.812 Encounter for preprocedural laboratory examination (principal); Z20.822 Contact with and (suspected) exposure to COVID-19
CPT/HCPCS: 87635

== ENCOUNTER 2021-10-28 06:43 | Day surgery (SDC) | payer OTHER, SELFPAY ==
[2021-10-26 12:24] VITALS: BMI 30.4
[2021-10-28] VITALS (19 sets, daily range): BP systolic 91–142; BP diastolic 47–91; PULSE 60–91; RESP 10–18; TEMP 36.2–37.2; O2SAT 96–100; BMI 30.4
--- NOTE | 2021-10-28 | PATH_ITS ---
[facility] Accession Number: [id number] . 01 Material submitted: . PART A: uterus - UTERUS AND BILATERAL FALLOPIAN TUBES PART B: suprapubic area - SUPRAPUBIC LIPOMA . 02 Diagnosis: A. Uterus and Bilateral Falllopian Tubes, Supracervical Hysterectomy and Bilateral Salpingectomy (Fragmented Weight 200 grams): Secretory endometrium; negative for glandular hyperplasia, cytologic atypia, or malignancy. Myometrium involved by multiple intramural leiomyomas (2-15 mm); negative for atypia or malignancy. Uterine serosa with no significant histomorphologic abnormality. Fallopian tubes x2 with complete cross sections and scattered benign paratubal cysts (up to 7 mm in greatest dimension); negative for atypia or malignancy. . B. Suprapubic Lipoma: Multiple portions of benign adipose tissue (greatest aggregate dimension 4.8 cm); negative for atypia or malignancy. [facility] 11/01/2021 1138 Local . 02 Electronically signed: . Meredith Street MD, Pathologist NPI- [id number] . 01 Gross description: . A. The specimen is received in formalin, labeled uterus, bilateral fallopian tubes, and consists of a fragmented uterus weighing 200 g and measuring 16.0 x 15.0 x 6.0 cm in aggregate. A cervix is not identified. The serosa is wiseman-pink and smooth. Sectioning reveals a wiseman-pink, focally hemorrhagic endometrium measuring 0.3 cm in thickness. The myometrium is wiseman-pink and trabeculated, measuring approximately 2.0 cm in thickness. There are multiple wiseman-white, whorled leiomyomata and leiomyomata fragments ranging from 0.2 cm to 1.5 cm with no areas of hemorrhagic, necrosis, or cystic degeneration. Two fallopian tubes are identified measuring 6.5 cm in length by 0.8 cm in diameter and 8.6 cm in length by 0.6 cm in diameter. The serosa is wiseman-pink to pink-purple and smooth with focal areas of disruption and a 0.7 x 0.6 x 0.5 cm paratubal cyst. Sectioning reveals a wiseman-pink mucosa and a stellate lumen measuring 0.4 cm in diameter. [employer] sections are submitted. . A1-A2: Lower uterine segment. A3-A6: [employer] uterus and leiomyomata. A7-A8: Fallopian tube, welding equipment sales representative central cross-sections and bisected fimbriae. . B. Received in formalin, labeled suprapubic lipoma, and consists of multiple wiseman-yellow, lobulated fragments of adipose tissue measuring 4.8 x 3.8 x 2.5 cm in aggregate. The specimen is inked blue. [employer] sections are submitted in cassettes B1-B4. ([id number]) /FRR 10/29/[address] [place] [address] . 02 Pathologist provided ICD-10: N84.0, D50.0, D17.9 . 02 CPT . 921131, 729077 Performed at: 01 [facility] [address] [place] [address], [place], [place] [id number] MD Grayson Machado MD Phone: [phone] Performed at: 02 [facility] [address] [place], [place] [id number] MD Elisabet Hernandez MD Phone: [phone]
[2021-10-28] MEDS: LACTATED RINGERS 1,000 ML 100 ML IV ×4 (07:30→23:02)
--- NOTE | 2021-10-28 07:33 | PM.PREOP ---
Pre-operative Note COVID-19 COVID-19 status: Negative Result date/Date tested (Pos, Neg/Pending): 10/27/21 Interval Note History & Physical reviewed/Exam performed by Physician: Yes Changes to H&P: No
--- NOTE | 2021-10-28 07:39 | SUR.OPER ---
Lithotomy on padded OR bed. [place] Pad Positioner under torso. Head on pillow, arms padded and tucked at sides. Legs secured in padded yellow fins stirrups.
--- NOTE | 2021-10-28 07:50 | SUR.PREOP ---
Lab called x3 to draw blood for T&S
[2021-10-28] MEDS: CEFAZOLIN 2 GM/20 ML SYRINGE IV (08:15)
[2021-10-28] MEDS: BUPIVACAINE 0.5% W/ EPI (PF) 30 ML VIAL INJ (08:27)
[2021-10-28] MEDS: ROPIVACAINE 0.2% PF 2 MG/ML 10ML AMP 20 ML INJ (08:29)
--- NOTE | 2021-10-28 10:21 | PM.OP.1 ---
Operative Date/Time/Diagnoses Date of procedure: 10/28/21 Time of procedure: 10:21 Pre-op diagnosis: Menorrhagia, suprapubic lipoma Post-op diagnosis: same Procedure & Clinicians Procedure: Laparoscopic supracervical hysterectomy with bilateral salpingectomies and removal of suprapubic lipoma Same procedure as scheduled: Yes Indications: Menorrhagia, suprapubic lipoma Surgeon: Eva Montoya Telecommunications Clerk: Alfreda Mittal Anesthesia Type: General Operative Notes Closure Type: primary Specimen(s): other (Uterus above the level of the cervix, bilateral fallopian tubes, lipoma) Estimated Blood Loss (mL): 150 Blood products transfused: none Procedure in detail: Patient is brought to the operating room where she underwent general anesthesia and placed in low [facility] stirrups. She was prepped and draped in the usual sterile fashion. A check list was reviewed with the staff in the room prior to beginning of the case. Patient had pulsatile stockings in place and functional. 2 g of Ancef were in prior to beginning of the case.. A Werner catheter was placed. A single-tooth tenaculum was placed on the anterior lip of the cervix and the cervix dilated to a #6 Hegar dilator. The uterine manipulator was placed through the cervix into the uterus with the balloon inflated with 3 mL of air. The area of the umbilical incision and the 5 mm right and left lower quadrant incisions were injected with Marcaine. An incision was made with scalpel. The verries needle was placed into the abdomen and confirmed in the appropriate place with withdrawal on a syringe and then free flow of fluid down through the needle. The abdomen was insufflated with CO2. The needle was removed and a 5 mm trocar placed without difficulty under direct visualization. There did not appear to be any damage is placement of the trocar. The right and left lower quadrant incisions were made with the scalpel and the trochars placed without damage to internal structures. The PK forceps were used to cauterize the mesosalpinx followed by the round ligaments on both sides. Sequential bites were taken down the broad ligaments. The uterine arteries were cauterized. An incision was made above the level bladder pushing the bladder away from the cervix. The SUE loop was placed around the uterus and the uterus was amputated above the level of the bladder. Bleeding was controlled with the PK forceps. The PK forceps were used to cauterize in the endocervical canal. A supracervical incision was made over the supra pubic lipoma. The lipoma was removed. An 11 mm port placed. A 15 mm Endo Catch bag was placed in the abdomen. The uterus and tubes were placed in the bag and brought up through the suprapubic port site. The Dalton O was placed. The uterus was hand morselized. The abdomen was reinsufflated and adequate hemostasis was noted. 10 cc of ropivacaine were placed over the cervical stump. Trochars were removed and the CO2 allowed escape from the abdomen. The fascia layer of the suprapubic site was repaired with 0 Polysorb suture. The fatty layer was sutured with interrupted 3-0 Vicryl suture to close the space. The skin was closed with 4-0 Monocryl suture at the suprapubic site and the other 3 sites. The patient went to recovery room in good condition. Counts of instruments and sponges were correct. Dr. Mittal was present throughout the case to assist with holding the camera, retracting, cauterizing and cutting the structures on the left side of the patient, as well as assisting with morselization of the uterus. Complications: none Post-operative Condition: stable Disposition: Acute Care Plan for aftercare: Routine post laparoscopic supracervical hysterectomy
[2021-10-28] MEDS: ONDANSETRON 4 MG/2 ML INJ IV (10:38)
[2021-10-28] MEDS: fentaNYL 100 MCG/2 ML INJ IV (10:38)
[2021-10-28] MEDS: OXYCODONE IR 5 MG TABLET PO ×3 (11:06→14:55)
--- NOTE | 2021-10-28 11:58 | SUR.PHASEI ---
report to CARMEN Bustamante on acute care. No reports of nv, rates pain 2/10. 50mcg of fentanyl and Oxycoden IR 5 mg administered for relief. Tolerated oral beverages. Pt transported to room 224 by CARMEN Frey and SUSSY Kowalski in stable condition
[2021-10-28] MEDS: OXYCODONE IR 5 MG TABLET 10 MG PO ×2 (17:43→23:02)
--- NOTE | 2021-10-28 19:23 | PC.NURSE ---
Pt received at noon from PACU. She is alert OX3. She denies n/v, and able to advance diet as tolerated this evening. She tolerates a full dinner meal well this evening. She is drinking adequately and voids x2 large this evening LR to R hand PIV @100ml/hr. BS +, LS CTA. VSS, afebrile on RA. She denies dizziness with ambulating but is very sore 5/10 pain. Pain appears to be well controlled with 10 mg PRN oxycodone, she later rates pain 1/10. Minimal spotting of leah pad, no further spotting observed. MD at bedside this evening stating patient doing well. Continuous monitoring.
[2021-10-28] MEDS: DOCUSATE 100 MG CAPSULE 200 MG PO (21:38)
[2021-10-29 00:35] VITALS: BP 120/73; PULSE 68; RESP 17; TEMP 37.1; O2SAT 98
[2021-10-29] MEDS: OXYCODONE IR 5 MG TABLET PO (03:36)
[2021-10-29 04:00] VITALS: BP 131/78; PULSE 76; RESP 19; TEMP 37.2; O2SAT 98
[2021-10-29] MEDS: OXYCODONE IR 5 MG TABLET 10 MG PO ×2 (04:05→08:25)
[2021-10-29 04:48] LABS: Add Manual Diff / Slide Review NO; Basophils Absolute Auto 0 /uL (0-100); Basophils Percent Auto 0.2 % (0-2); Eosinophils Absolute Auto 0 /uL (0-450); Eosinophils Percent Auto 0.1 % (2-4); Hematocrit 30.7 % (36-46); Hemoglobin 9.9 g/dL (12.0-16.0); Lymphocytes Absolute Auto 1700 /uL (1100-4500); Lymphocytes Percent Auto 11.2 % (25-40); Mean Corpuscular HGB Conc 32.4 % (30-36); Mean Corpuscular Hemoglobin 29.9 PG (26-34); Mean Corpuscular Volume 92.2 fL (80-100); Monocytes Absolute Auto 1600 /uL (0-900); Monocytes Percent Auto 10.9 % (3-14); Neutrophils Absolute Auto 11500 /uL (1500-7000); Neutrophils Percent Auto 77.6 % (50-75); Platelet Count 317 X10^3/uL (150-400); Red Blood Cell Count 3.33 X10^6/uL (4.0-5.2); Red Cell Distribution Width 14.1 % (11.6-14.8); White Blood Cell Count 14.8 X10^3/uL (4.5-11.0)
[2021-10-29 08:00] VITALS: BP 129/81; PULSE 75; RESP 17; TEMP 36.6; O2SAT 98
[2021-10-29] MEDS: DOCUSATE 100 MG CAPSULE 200 MG PO (08:24)
--- NOTE | 2021-10-29 09:33 | PM.DS.1 ---
History of Present Illness History of Present Illness Date Patient Seen: 10/29/21 Time Patient Seen: 09:33 Chief complaint: OPB Narrative: Status post laparoscopic supracervical hysterectomy with bilateral salpingectomies in removal suprapubic lipoma for menorrhagia Discharge Providers Provider Discharge Date: 10/29/21 Primary care physician: ELIS Power Discharge provider: Eva Montoya MD Summary Status at Discharge Cognitive/behavioral status at discharge: oriented Functional status at discharge: independent ambulation Overall status at discharge: patient is progressing back to baseline Time Spent with Patient Time spent: Less than 30 minutes Exam Vital Signs (past 8 hours): - 10/29/21 04:00 Temperature 99.0 F Pulse Rate 76 Respiratory Rate 19 Blood Pressure 131/78 Pulse Oximetry 98 Oxygen Delivery Method Room Air Oxygen Flow Rate 0 Narrative Exam Narrative: Abdomen is soft, nontender. Dressings are clean, dry, intact. No vaginal bleeding. Extremities without edema and nontender. Objective Labs Result Diagrams: 10/29/21 04:15 Labs: Laboratory Results - last 24 hr 10/29/21 04:15 WBC 14.8 H RBC 3.33 L Hgb 9.9 L Hct 30.7 L MCV 92.2 MCH 29.9 MCHC 32.4 RDW 14.1 Plt Count 317 Neut % (Auto) 77.6 H Lymph % (Auto) 11.2 L [place] % (Auto) 10.9 Eos % (Auto) 0.1 L Baso % (Auto) 0.2 Neut # (Auto) 64411 H Lymph # (Auto) 1700 [place] # (Auto) 1600 H Eos # (Auto) 0 Baso # (Auto) 0 PFSH Medical History Asthma Parasites in stool Social History household members: spouse Smoking Status: Never smoker alcohol intake: current substance use type: does not use during the past year weight has: increased > 10 lbs Discharge Assessment & Plan Assessment and Plan Assessment: Status post laparoscopic supracervical hysterectomy with bilateral salpingectomies and removal of suprapubic lipoma doing well. Plan of Treatment: Discharged home to be followed up in 1 month. Incision instructions reviewed. She was instructed to call if she has excessive bleeding from her incisions, fever chills, nausea vomiting, pain that is uncontrolled. Discharge Plan Discharge Plan Patient Disposition: Home Discharge orders & Medications Discharge Orders: Discharge (Order); Ordered 10/29/21 Ordered By: Eva Montoya Prescriptions: Continued Dulera 200 MCG/5 MCG HFA aerosol inhaler 1 puff INH BID Qty: 0 0RF montelukast 10 MG tablet 10 mg PO DAILY PRN (Reason: asthma or allergies) Qty: 0 0RF budesonide 0.5 mg/2 mL suspension for nebulization 0.5 mg inhalation DAILY 0RF oxycodone 5 mg tablet 5 mg PO Q6H PRN (Reason: pain) Qty: 30 0RF celecoxib 200 mg capsule 200 mg PO DAILY PRN (Reason: joint pain) 0RF Label Comments: TK 1 C PO QD NEEDED FOR JOINT PAIN ProAir RespiClick 90 mcg/actuation Aerosol Powdr Breath Activated 1 puff Inhalation PRN PRN (Reason: Allergy Symptoms) 0RF Follow up/Referrals: Eva Montoya MD [Physician] - 1 Month Oma Bradley ARNP [Primary Care Provider] - Diet/Activity/Treatments Diet: Regular Activity: Nothing in vagina for 1 week no other restrictions Skin/Wound/Dressing Care Report to your healthcare provider any signs of infection, such as:: chills, fever, increased pain and unusual redness Dressing: May remove Band-Aids today. Leave Steri-Strips in place for 1 week can get wet just pat dry. In 1 week get wet and rub off. Visit Report/Discharge Packet Instructions: DI for Hysterectomy, DI for Laparoscopy Discharge Data Primary Care Provider: Oma Bradley Attending Provider: Eva Montoya Quality VTE Deep Vein Thrombosis/Pulmonary Embolism Present on Admission: No
== END 2021-10-29 09:47 | disposition home or self-care (01) ==
LOC: OR 06:44 → AC 06:47
PROVIDERS: PCP Internal Medicine; Referring Provider Specialist; Visit Provider Specialist
PROC: 0UT94ZL Resection of Uterus, Supracervical, Percutaneous Endoscopic Approach (ICD-10-PCS; CPT 58542; principal; 2021-10-28 07:45)
DX: N92.0 Excessive and frequent menstruation with regular cycle (principal); D25.1 Intramural leiomyoma of uterus; N83.8 Other noninflammatory disorders of ovary, fallopian tube and broad ligament; D17.1 Benign lipomatous neoplasm of skin and subcutaneous tissue of trunk
CPT/HCPCS: 58542; 36415; 81025; 85025; 86850; 86900; 86901; 94760; J0690; J1100; J2405; J2704; J2795; J3010

== ENCOUNTER → 2023-01-29 19:14 | Outpatient (CLI) | payer OTHER, SELFPAY ==
[2021-10-28 14:53] VITALS: BMI 30.4
== END ==
PROVIDERS: PCP Internal Medicine; Visit Provider Physician Assistant
DX: L02.91 Cutaneous abscess, unspecified (principal)
CPT/HCPCS: 87070; 87075; 87205

== ENCOUNTER → 2023-06-08 15:28 | Outpatient (CLI) | payer OTHER, SELFPAY ==
[2021-10-28 14:53] VITALS: BMI 30.4
--- NOTE | 2023-06-08 16:26 | DI.CT.S_ITS ---
PROCEDURE: CT SINUS SCREEN WO CON INDICATIONS: Nasal polyp TECHNIQUE: Noncontrast 3.0 mm axial images acquired from the frontal sinuses to the mid-sella, with coronal and sagittal reformats. For radiation dose reduction, the following was used: automated exposure control, adjustment of mA and/or kV according to patient size. COMPARISON: [facility], CT, SINUS SCREEN WO CONTRAST, 03/02/2017, 15:47. FINDINGS: Image quality: Excellent. Maxillary Sinuses: Hyperostosis of the bilateral maxillary sinuses, consistent with chronic maxillary sinusitis. Layering frothy secretions within the bilateral maxillary sinuses. Status post bilateral maxillary antrostomies and middle turbinectomies. Polypoid mucosal thickening within the right greater than left nasal cavities. Ethmoid Air Cells: Status post bilateral ethmoidectomies. Partial opacification of the bilateral ethmoid air cells. Sphenoid Sinuses: Hyperostosis of the sphenoid sinuses. Complete opacification the right sphenoid sinus and partial opacification of the left sphenoid sinus. Frontal Sinuses: Complete opacification of the right frontal sinus. Ostiomeatal Complexes: Status post bilateral antrostomies. No Marguerite cells. Miscellaneous: Visualized intra-orbital contents are normal. No significant nasal septal deviation. IMPRESSION: 1. Postsurgical changes from prior endoscopic sinonasal surgery. 2. Hyperostosis of the maxillary sinus graham consistent with chronic sinusitis. Frothy secretions in the bilateral maxillary sinuses, consistent with an acute sinusitis component. 3. Chronic sphenoid sinusitis with complete opacification of the right and partial opacification of left sphenoid sinuses. Partial opacification of the ethmoid air cells and complete opacification of the right frontal sinus. 4. Polypoid mucosal thickening of the bilateral nasal cavities, greater on the right. Recommend correlation with direct visualization. Dictated by: Marciano Johnson M.D. on 06/08/2023 at 16:53 Approved by: Marciano Johnson M.D. on 06/08/2023 at 16:58
== END ==
PROVIDERS: PCP Internal Medicine; Referring Provider Physician Assistant; Visit Provider Physician Assistant
DX: J32.8 Other chronic sinusitis (principal); J33.9 Nasal polyp, unspecified
CPT/HCPCS: 70486

== ENCOUNTER → 2025-10-02 08:21 | Outpatient (CLI) | payer OTHER, SELFPAY ==
[2021-10-28 14:53] VITALS: BMI 30.4
--- NOTE | 2025-10-02 | DI.RAD.S_ITS ---
PROCEDURE: XR HIP W PEL IF DONE LT 2V INDICATIONS: Pain of left hip TECHNIQUE: AP pelvis with lateral view(s) of the left hip(s). COMPARISON: None. FINDINGS: Bones: No fractures or dislocations. Pelvic ring appears intact. No suspicious bony lesions. Soft tissues: The visualized bowel gas pattern is normal. No suspicious soft tissue calcifications. IMPRESSION: No acute osseous abnormality. If pain persists with conservative management, consider repeat x-ray in 10-14 days or cross-sectional imaging. Dictated by: Marciano Johnson M.D. on 10/03/2025 at 13:48 Approved by: Marciano Johnson M.D. on 10/03/2025 at 13:48
== END ==
LOC: RAD 08:23
PROVIDERS: PCP Family Medicine; Referring Provider Family Medicine; Visit Provider Family Medicine
DX: M25.552 Pain in left hip (principal)
CPT/HCPCS: 73502